=== PATIENT | female | born 2000 | race Native Hawaiian/Other Pacific Islander ===

== ENCOUNTER 2021-11-09 16:57 | Outpatient (CLI) | payer OTHER ==
[2021-11-09 17:10] LABS: PLATELET COUNT 216 K/uL (152-353)
[2021-11-09 17:32] LABS: POTASSIUM 3.4 mmol/L (3.6-5.2)
== END 2021-11-09 19:18 | disposition home or self-care (01) ==
LOC: LAB 16:57
PROVIDERS: ATTEND Nurse Practitioner Family
DX: N10 Acute pyelonephritis (principal)
CPT/HCPCS: 80053; 85027